=== PATIENT | male | born 1990 | race Caucasian/White ===

== ENCOUNTER 2019-03-16 13:21 | Emergency (ER) | payer OTHER ==
[~2019-03-16] VITALS: Ht 175.3 cm; Wt 133.8 kg
[2019-03-16 13:42] VITALS: Ht 175.3 cm; Wt 133.8 kg
[2019-03-16 16:02] VITALS: BP 154/84
== END 2019-03-16 16:02 | disposition home or self-care (01) ==
LOC: ED 13:21
DX: J20.8 Acute bronchitis due to other specified organisms (principal); H11.31 Conjunctival hemorrhage, right eye; R03.0 Elevated blood-pressure reading, without diagnosis of hypertension; Z90.89 Acquired absence of other organs
CPT/HCPCS: J1100

== ENCOUNTER 2019-06-22 15:42 | Emergency (ER) | payer OTHER ==
[~2019-06-22] VITALS: Ht 172.7 cm; Wt 136.1 kg
[2019-06-22 15:55] VITALS: Ht 172.7 cm; Wt 136.1 kg
[2019-06-22 17:05] LABS: microscopic required? NO
[2019-06-22 17:11] LABS: BASOPHIL % 0.5 % (0-2); PLATELET COUNT 217 x10^3mcL (130-400)
[2019-06-22 17:20] LABS: UA SPECIFIC GRAVITY 1.015 (1.005-1.035); urine erythrocyte NEGATIVE (NEGATIVE)
[2019-06-22 17:28] LABS: AMPHETAMINE QUAL UR NONE DETECTED (See below)
[2019-06-22 17:31] LABS: ALBUMIN 3.6 g/dL (3.4-5.0); ALKALINE PHOSPHATASE 150 U/L (46-116); ALT/SGPT 86 U/L (16-63); AST/SGOT 129 U/L (15-37); BILIRUBIN TOTAL 0.58 mg/dL (0.20-1.00); CALCIUM 8.2 mg/dL (8.5-10.1); CARBON DIOXIDE 27.4 mmol/L (21-32); CHLORIDE SERUM 102 mmol/L (98-107); CREATININE SERUM 0.6 mg/dL (0.7-1.3); GFR1 > 60 mL/min; GLUCOSE SERUM 114 mg/dL (74-106); LIPASE 124 IU/L (73-393); POTASSIUM SERUM 3.4 mmol/L (3.5-5.1); SODIUM SERUM 140 mmol/L (136-145)
[2019-06-22 17:32] LABS: TOTAL PROTEIN, SERUM 8.3 g/dL (6.4-8.2)
[2019-06-22 18:23] VITALS: BP 165/82
== END 2019-06-22 18:23 | disposition home or self-care (01) ==
LOC: ED 15:42
PROVIDERS: Emergency Medicine
DX: K29.20 Alcoholic gastritis without bleeding (principal); F14.10 Cocaine abuse, uncomplicated; R94.5 Abnormal results of liver function studies; Z90.89 Acquired absence of other organs
CPT/HCPCS: 36415

== ENCOUNTER 2019-08-18 11:17 | Emergency (ER) | payer OTHER ==
[~2019-08-18] VITALS: Ht 175.3 cm; Wt 132.0 kg
[2019-08-18 11:30] VITALS: BP 161/90; Ht 175.3 cm; Wt 132.0 kg
== END 2019-08-18 14:56 | disposition home or self-care (01) ==
LOC: ED 11:17
DX: J04.0 Acute laryngitis (principal); Z90.89 Acquired absence of other organs

== ENCOUNTER 2019-09-21 16:03 | Emergency (ER) | payer OTHER ==
[~2019-09-21] VITALS: Ht 175.3 cm; Wt 138.8 kg
[2019-09-21 16:19] VITALS: BP 164/112; Ht 175.3 cm; Wt 138.8 kg
== END 2019-09-21 18:54 | disposition home or self-care (01) ==
LOC: ED 16:03
DX: S43.402A Unspecified sprain of left shoulder joint, initial encounter (principal); J40 Bronchitis, not specified as acute or chronic; V49.9XXA Car occupant (driver) (passenger) injured in unspecified traffic accident, initial encounter; Y93.I9 Activity, other involving external motion; Y92.413 State road as the place of occurrence of the external cause; Y99.8 Other external cause status; Z90.89 Acquired absence of other organs

== ENCOUNTER 2020-01-06 13:31 | Emergency (ER) | payer OTHER, SELFPAY ==
[~2020-01-06] VITALS: Ht 172.7 cm; Wt 140.6 kg
[2020-01-06 13:44] VITALS: Ht 172.7 cm; Wt 140.6 kg
[2020-01-06 14:25] VITALS: BP 160/71
== END 2020-01-06 14:25 | disposition home or self-care (01) ==
LOC: ED 13:31
DX: R05 Cough (principal); R06.02 Shortness of breath; J02.9 Acute pharyngitis, unspecified; Z90.89 Acquired absence of other organs

== ENCOUNTER 2020-03-14 11:08 | Emergency (ER) | payer OTHER ==
[~2020-03-14] VITALS: Ht 175.3 cm; Wt 151.5 kg
[2020-03-14 11:13] VITALS: Ht 175.3 cm; Wt 151.5 kg
[2020-03-14 12:00] VITALS: BP 175/100
== END 2020-03-14 12:00 | disposition home or self-care (01) ==
LOC: ED 11:08
DX: S01.81XD Laceration without foreign body of other part of head, subsequent encounter (principal); Z90.49 Acquired absence of other specified parts of digestive tract; X58.XXXD Exposure to other specified factors, subsequent encounter

== ENCOUNTER 2020-04-02 05:42 | Inpatient (IN) | payer OTHER, SELFPAY ==
[~2020-04-02] VITALS: Ht 172.7 cm; Wt 142.7 kg
[2020-04-02 05:48] VITALS: Ht 172.7 cm; Wt 142.7 kg
[2020-04-02 07:10] LABS: BASOPHIL % 0.8 % (0-2)
[2020-04-02 07:24] LABS: CALCIUM 7.7 mg/dL (8.5-10.1); CHLORIDE SERUM 97 mmol/L (98-107); CREATININE SERUM 0.8 mg/dL (0.7-1.3); GFR1 > 60 mL/min; GLUCOSE SERUM 112 mg/dL (74-106); POTASSIUM SERUM 3.4 mmol/L (3.5-5.1); SODIUM SERUM 133 mmol/L (136-145)
[2020-04-02 07:26] LABS: PLATELET COUNT 92 x10^3mcL (130-400); RED CELL DISTRIBUTION WIDTH 17.2 % (11.5-14.5)
[2020-04-02 07:29] LABS: ALKALINE PHOSPHATASE 288 U/L (46-116); ALT/SGPT 41 U/L (16-63); AST/SGOT 169 U/L (15-37); BILIRUBIN TOTAL 5.2 mg/dL (0.20-1.00)
[2020-04-02 07:33] LABS: TOTAL PROTEIN, SERUM 9.1 g/dL (6.4-8.2)
[2020-04-02 08:53] LABS: microscopic required? NO
[2020-04-02 09:50] LABS: UA SPECIFIC GRAVITY <=1.005 (1.005-1.035); urine erythrocyte NEGATIVE (NEGATIVE)
[2020-04-02 12:12] LABS: CHOLESTEROL/HDL RATIO 9.5
[2020-04-02 12:51] LABS: C REACTIVE PROTEIN 0.9 mg/dL (<=0.9)
[2020-04-02 16:40] VITALS: BP 144/82
[2020-04-02 19:34] LABS: AMPHETAMINE QUAL UR NONE DETECTED (See below)
[2020-04-02 20:55] VITALS: BP 110/71
[2020-04-02 23:49] VITALS: BP 140/85
[2020-04-03 05:46] VITALS: BP 132/93
[2020-04-03 09:05] LABS: C REACTIVE PROTEIN 5.8 mg/dL (<=0.9); CALCIUM 8.6 mg/dL (8.5-10.1); CARBON DIOXIDE 29.9 mmol/L (21-32); CHLORIDE SERUM 99 mmol/L (98-107); CREATININE SERUM 0.9 mg/dL (0.7-1.3); GFR1 > 60 mL/min; GLUCOSE SERUM 92 mg/dL (74-106); MAGNESIUM 1.2 mg/dL (1.8-2.4); PHOSPHOROUS 3.5 mg/dL (2.5-4.9); POTASSIUM SERUM 3.5 mmol/L (3.5-5.1); SODIUM SERUM 139 mmol/L (136-145)
[2020-04-03 09:28] LABS: BILIRUBIN DIRECT 6.12 mg/dL (0.0-0.2); BILIRUBIN TOTAL 8.53 mg/dL (0.20-1.00)
[2020-04-03 09:54] LABS: PLATELET COUNT 83 x10^3mcL (130-400); RED CELL DISTRIBUTION WIDTH 17.7 % (11.5-14.5)
[2020-04-03 09:55] VITALS: BP 114/64
[2020-04-03 09:55] LABS: ALBUMIN 3.1 g/dL (3.4-5.0); TOTAL PROTEIN, SERUM 9.3 g/dL (6.4-8.2)
[2020-04-03 12:08] LABS: rbc morphology (normal/abnorm) NORMAL (NORMAL)
[2020-04-03 13:41] VITALS: BP 113/84
[2020-04-03 16:48] VITALS: BP 111/78
[2020-04-03 22:37] VITALS: BP 120/83
[2020-04-04 06:10] VITALS: BP 139/82
[2020-04-04 07:29] LABS: BASOPHIL % 0.1 % (0-2)
[2020-04-04 07:50] LABS: PLATELET COUNT 84 x10^3mcL (130-400); RED CELL DISTRIBUTION WIDTH 18.1 % (11.5-14.5)
[2020-04-04 09:04] VITALS: BP 114/75
[2020-04-04 10:40] LABS: C REACTIVE PROTEIN 10.1 mg/dL (<=0.9); CARBON DIOXIDE 29.9 mmol/L (21-32); CHLORIDE SERUM 102 mmol/L (98-107); CREATININE SERUM 0.8 mg/dL (0.7-1.3); GFR1 > 60 mL/min; GLUCOSE SERUM 101 mg/dL (74-106); MAGNESIUM 1.5 mg/dL (1.8-2.4); PHOSPHOROUS 4.5 mg/dL (2.5-4.9); POTASSIUM SERUM 3.2 mmol/L (3.5-5.1); SODIUM SERUM 143 mmol/L (136-145)
[2020-04-04 12:42] VITALS: BP 103/56
== END 2020-04-04 17:05 | disposition home or self-care (01) | DRG 720 ==
LOC: ED 05:42 → DU 09:44
PROVIDERS: Emergency Medicine; ADMIT Internal Medicine; ATTEND Internal Medicine
DX: A41.9 Sepsis, unspecified organism (principal); J96.01 Acute respiratory failure with hypoxia; E66.01 Morbid (severe) obesity due to excess calories; I11.0 Hypertensive heart disease with heart failure; I50.9 Heart failure, unspecified; K70.10 Alcoholic hepatitis without ascites; K70.9 Alcoholic liver disease, unspecified; Z20.828 Contact with and (suspected) exposure to other viral communicable diseases; F19.10 Other psychoactive substance abuse, uncomplicated; Z71.3 Dietary counseling and surveillance; D64.9 Anemia, unspecified; E80.6 Other disorders of bilirubin metabolism; E87.1 Hypo-osmolality and hyponatremia
CPT/HCPCS: 36600; 83880; 85378; G0378; G0480; J1940; J2060; J2405; J3475; J7040; Q0092; U0003-CS

== ENCOUNTER 2020-07-27 15:35 | Emergency (ER) | payer OTHER ==
[~2020-07-27] VITALS: Ht 172.7 cm; Wt 142.9 kg
[2020-07-27 15:45] VITALS: Ht 172.7 cm; Wt 142.9 kg
[2020-07-27 16:23] VITALS: BP 136/75
== END 2020-07-27 16:23 | disposition home or self-care (01) ==
LOC: ED 15:35
DX: R60.0 Localized edema (principal); S39.012A Strain of muscle, fascia and tendon of lower back, initial encounter; R03.0 Elevated blood-pressure reading, without diagnosis of hypertension; E66.01 Morbid (severe) obesity due to excess calories; Z02.79 Encounter for issue of other medical certificate; Z90.89 Acquired absence of other organs; X58.XXXA Exposure to other specified factors, initial encounter; Y93.89 Activity, other specified; Y92.89 Other specified places as the place of occurrence of the external cause; Y99.8 Other external cause status